=== PATIENT | male | born 1995 | race American Indian/Alaskan Native ===

== ENCOUNTER 2016-05-21 12:40 | Emergency (ER) | payer OTHER ==
[2016-05-21 12:50] VITALS: BMI 20.9
[2016-05-21 12:57] VITALS: RESP 16; TEMP 98.6
--- NOTE | 2016-05-21 13:04 | ED PDOC ---
Arrival/HPI - General Chief Complaint: Upper Extremity Problem/Injury Time Seen by Provider: 05/21/16 12:57 Historian: Patient - History of Present Illness Narrative History of Present Illness (Text): 05/21/16 13:01 20yo male with no PMHx who present with complaint of right arm pain x 2weeks. States pain radiates from his elbow to his shoulder intermittently. 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 He did not take any medication for pain. Denies trauma, weakness, paresthesia, any other complaint. Past Medical History - Provider Review Nursing Documentation Reviewed: Yes - Infectious Disease Hx of Infectious Diseases: None - Psychiatric Hx Substance Use: No Family/Social History - Physician Review Nursing Documentation Reviewed: Yes Family/Social History: Unknown Family HX Smoking Status: Never Smoked Hx Alcohol Use: Yes Frequency of alcohol use: Socially Hx Substance Use: No Allergies/Home Meds Allergies/Adverse Reactions: Allergies No Known Allergies Allergy (Verified 05/21/16 13:01) Review of Systems - Physician Review All systems were reviewed & negative as marked: Yes - Review of Systems Constitutional: Normal Eyes: Normal ENT: Normal Respiratory: Normal Cardiovascular: Normal Gastrointestinal: Normal Genitourinary Male: Normal Musculoskeletal: Arthralgias (LEft arm pain) Skin: Normal Neurological: Normal Endocrine: Normal Hemo/Lymphatic: Normal Psychiatric: Normal Physical Exam Vital Signs Reviewed: Yes Vital Signs Temp Pulse Resp BP Pulse Ox 05/21/16 13:45 80 16 120/72 99 05/21/16 12:40 98.6 F 75 16 116/78 97 Temperature: Afebrile Blood Pressure: Normal Pulse: Regular Respiratory Rate: Normal Appearance: Positive for: Well-Appearing, Non-Toxic, Comfortable Pain Distress: None Mental Status: Positive for: Alert and Oriented X 3 - Systems Exam Head: Present: Atraumatic, Normocephalic Pupils: Present: PERRL Extroacular Muscles: Present: EOMI Conjunctiva: Present: Normal Mouth: Present: Moist Mucous Membranes Neck: Present: Normal Range of Motion Respiratory/Chest: Present: Clear to Auscultation, Good Air Exchange. No: Respiratory Distress, Accessory Muscle Use Cardiovascular: Present: Regular Rate and Rhythm, Normal S1, S2. No: Murmurs Abdomen: Present: Normal Bowel Sounds. No: Tenderness, Distention, Peritoneal Signs Back: Present: Normal Inspection Upper Extremity: Present: Normal Inspection, Normal ROM, NORMAL PULSES, Neurovascularly Intact, Capillary Refill < 2s. No: Cyanosis, Edema, Tenderness , Swelling, Erythema, Temperature Abnormalties, Deformity Lower Extremity: Present: Normal Inspection. No: Edema Neurological: Present: GCS=15, CN II-XII Intact, Speech Normal Skin: Present: Warm, Dry, Normal Color. No: Rashes Psychiatric: Present: Alert, Oriented x 3, Normal Insight, Normal Concentration Medical Decision Making ED Course and Treatment: 05/21/16 17:31 Pt presented for stated history. he denied trauma. His exam was benign. No xray was ordered at this time. Analgesic was given in ED and pt was DC home with analgesic. Advised to avoid heavy lifting and rest arm. Referred to his PMD. TRT ED for any new or worsening symptoms. - Medication Orders Current Medication Orders: Discontinued Medications Ketorolac Tromethamine (Toradol) 60 mg IM STAT STA Stop: 05/21/16 13:02 Last Admin: 05/21/16 13:34 Dose: 60 MG IM Administration Charges Document 05/21/16 13:34 SRE (Rec: 05/21/16 13:34 SRE [id number]) Injection Site MAR Injection Site Right Gluteus Dylan Charges for Administration # of IM Administrations 1 Disposition/Present on Arrival - Present on Arrival Any Indicators Present on Arrival: No History of DVT/PE: No History of Uncontrolled Diabetes: No Urinary Catheter: No History of Decub. Ulcer: No History Surgical Site Infection Following: None - Disposition Have Diagnosis and Disposition been Completed?: Yes Diagnosis: Arm pain Disposition: HOME/ ROUTINE Disposition Time: 13:05 Patient Plan: Discharge Condition: STABLE Discharge Instructions (ExitCare): Arm Pain (ED) Additional Instructions: Follow up with your doctor/Orthopedist Rest arm Return to ED for any new or worsening symptoms Prescriptions: Ibuprofen [Motrin Tab] 600 mg PO Q6 #20 tab Referrals: Gaston Dinh III, MD [Medical Doctor] - Follow up with primary Forms: WORK NOTE
[2016-05-21 13:58] VITALS: BP 120/72; PULSE 80; O2SAT 99
== END 2016-05-21 13:58 | disposition home or self-care (01) ==
LOC: MERGE 12:40 → ED 12:40
DX: M79.601 Pain in right arm (principal)
CPT/HCPCS: 96372; 99283; J1885

== ENCOUNTER 2017-12-28 09:25 | Day surgery (SDC) | payer BC ==
[2017-12-28] MEDS ORDERED: Propofol 10 mg/ml Inj (20 ML) ONE (10:38)
[2017-12-28] MEDS ORDERED: Sodium Chloride 0.9% 1,000 ML IV SCH (11:00)
[2017-12-28 11:19] VITALS: TEMP 98.1
[2017-12-28 12:24] VITALS: BP 113/74; PULSE 66; RESP 16; O2SAT 100
== END 2017-12-28 12:40 | disposition home or self-care (01) ==
LOC: ENDO 09:25
PROVIDERS: ATTEND Specialist
DX: K29.50 Unspecified chronic gastritis without bleeding (principal); R63.4 Abnormal weight loss; E73.9 Lactose intolerance, unspecified; R31.29 Other microscopic hematuria
CPT/HCPCS: 43239; 88305; 88342; J2704; J7030

== ENCOUNTER 2018-02-10 09:29 | Outpatient (CLI) | payer OTHER | END 2018-02-10 09:30 | disposition home or self-care (01) | LOC: LAB 09:29 ==